=== PATIENT | female | born 1995 | race Caucasian/White ===

== ENCOUNTER 2022-06-25 02:45 | Inpatient (IN) | payer OTHER ==
[2022-06-25 04:31] VITALS: BMI 25.7
[2022-06-25] MEDS ORDERED: ELECTROLYTE-148 SOLN 1,000 ML IV ONE (04:40)
[2022-06-25] MEDS ORDERED: BUTORPHANOL TARTRATE 2 MG/ML VIAL ONE (05:25)
[2022-06-25] MEDS ORDERED: PROMETHAZINE HCL 25 MG/1 ML VIAL ONE (05:26)
[2022-06-25] MEDS ORDERED: BUTORPHANOL TARTRATE 2 MG/ML VIAL IVPB ONE (05:30)
[2022-06-25] MEDS ORDERED: PROMETHAZINE HCL 25 MG/1 ML VIAL IVPB ONE ×2 (05:30)
[2022-06-25 05:33] LABS: POTASSIUM 3.8 mmol/L (3.5-5.1)
[2022-06-25 05:34] LABS: CALCIUM 9.1 mg/dL (8.5-10.1)
[2022-06-25 05:35] LABS: BLOOD UREA NITROGEN 6.9 mg/dL (7-18)
[2022-06-25 05:38] LABS: CREATININE 0.5 mg/dL (0.55-1.3)
[2022-06-25 05:41] LABS: BASO % 0.3 % (0-2.0); EOS % 0.3 % (0-4.5); HEMATOCRIT 34.3 % (32.4-45.2); LYMPH % 17.1 % (8-40); MCH 30.4 pg (25.7-33.7); MCHC 34.9 g/dl (32.0-36.0); MEAN CELL VOLUME 87.2 fl (80-96); MEAN PLT VOLUME 10.7 fl (7.5-11.1); MONO % 5.8 % (3.8-10.2); NEUT % 76.5 % (42.8-82.8); PLATELET COUNT 245 10^3/uL (134-434); RBC 3.94 M/mm3 (3.60-5.2); RDW 15.1 % (11.6-15.6); WHITE BLOOD COUNT 12.9 K/mm3 (4.0-10.0)
[2022-06-25 05:56] LABS: INR 0.98 (0.83-1.09); PROTHROMBIN TIME (PATIENT) 11.4 SEC (9.7-13.0)
[2022-06-25 05:59] LABS: ACTIVATED PTT 29.3 SECONDS (25.2-36.5)
[2022-06-25 06:01] LABS: SYPHILIS W/ RPR CONF NON-REACTIVE (NONREACTIVE)
[2022-06-25 06:30] LABS: HIV INTERPRETATION NEGATIVE (NEGATIVE)
[2022-06-25] MEDS ORDERED: CITRIC ACID/SODIUM CITRATE 30 ML UNIT-DOSE CUP PO ONE (09:22)
[2022-06-25] MEDS ORDERED: DEXTROSE 5%-LACTATED RINGERS 1,000 ML IV SCH (09:30)
[2022-06-25] MEDS ORDERED: ONDANSETRON 4 MG/2 ML VIAL IVPUSH PRN (09:42)
[2022-06-25] MEDS ORDERED: FENTANYL CITRATE/PF 50 MCG/ML VIAL ONE (09:45)
[2022-06-25] MEDS ORDERED: morphine SULFATE/PF 1 MG/2 ML (2cc Syringe - QUVA) ONE (09:45)
[2022-06-25] MEDS ORDERED: ceFAZolin SODIUM 1 GM VIAL ONE (10:03)
[2022-06-25] MEDS ORDERED: ONDANSETRON 4 MG/2 ML VIAL ONE (10:14)
[2022-06-25] MEDS ORDERED: OXYTOCIN 10 UNITS/ML VIAL ONE ×2 (10:14→10:54)
[2022-06-25] MEDS ORDERED: METHYLERGONOVINE MALEATE 0.2 MG/1 ML AMP IM PRN (11:00)
[2022-06-25] MEDS ORDERED: IBUPROFEN 800 MG/8 ML IJ IVPB PRN (11:00)
[2022-06-25] MEDS ORDERED: ACETAMINOPHEN 1000 MG/100 ML BAG IVPB PRN (11:03)
[2022-06-25] MEDS: OXYTOCIN 20 UNITS in 0.9% NS 20 UNIT/1,000 ML INFUS.BAG IV SCH ×2 (11:05→19:13)
[2022-06-25] MEDS ORDERED: IBUPROFEN 800 MG/8 ML IJ IVPB ONE (13:34)
[2022-06-25] MEDS: SENNOSIDES/DOCUSATE COMBO (SENNA PLUS) TABLET (UD) PO PRN (22:08)
[2022-06-25] MEDS: SIMETHICONE 80 MG TAB.CHEW (FP) PO PRN (22:08)
[2022-06-25] MEDS: FERROUS SO4 325 MG TABLET (FP) PO SCH (22:08)
[2022-06-25] MEDS ORDERED: oxyCODONE HCL 5 MG TABLET PO PRN (23:00)
[2022-06-26] MEDS: IBUPROFEN 600 MG TABLET (FP) PO PRN ×2 (00:54→13:42)
[2022-06-26] MEDS: oxyCODONE HCL 5 MG TABLET PO PRN ×3 (05:48→18:08)
[2022-06-26] MEDS: SIMETHICONE 80 MG TAB.CHEW (FP) PO PRN ×3 (05:48→18:09)
[2022-06-26 06:56] LABS: BASO % 0.3 % (0-2.0); EOS % 0.6 % (0-4.5); HEMATOCRIT 28.6 % (32.4-45.2); HEMOGLOBIN 10.1 GM/dL (10.7-15.3); LYMPH % 24.6 % (8-40); MCH 30.8 pg (25.7-33.7); MCHC 35.3 g/dl (32.0-36.0); MEAN CELL VOLUME 87.3 fl (80-96); MEAN PLT VOLUME 9.3 fl (7.5-11.1); MONO % 7.7 % (3.8-10.2); NEUT % 66.8 % (42.8-82.8); PLATELET COUNT 196 10^3/uL (134-434); RBC 3.28 M/mm3 (3.60-5.2); RDW 15.3 % (11.6-15.6); WHITE BLOOD COUNT 10.9 K/mm3 (4.0-10.0)
[2022-06-26] MEDS: FERROUS SO4 325 MG TABLET (FP) PO SCH ×2 (10:01→21:46)
[2022-06-26] MEDS: PRENATAL VITAMINS W/ FOLIC ACID TABLET (FP) PO SCH (10:01)
[2022-06-26] MEDS ORDERED: BISACODYL 10 MG SUPP.RECT RC PRN (11:00)
[2022-06-26] MEDS: ACETAMINOPHEN 325 MG TABLET (FP) PO PRN (19:52)
[2022-06-27] MEDS: ACETAMINOPHEN 325 MG TABLET (FP) PO PRN ×4 (01:45→17:32)
[2022-06-27] MEDS: SIMETHICONE 80 MG TAB.CHEW (FP) PO PRN ×3 (01:45→17:29)
[2022-06-27] MEDS: oxyCODONE HCL 5 MG TABLET PO PRN ×2 (08:23→13:03)
[2022-06-27] MEDS: FERROUS SO4 325 MG TABLET (FP) PO SCH ×2 (09:34→22:47)
[2022-06-27] MEDS: PRENATAL VITAMINS W/ FOLIC ACID TABLET (FP) PO SCH (09:34)
[2022-06-27] MEDS: SENNOSIDES/DOCUSATE COMBO (SENNA PLUS) TABLET (UD) PO PRN (17:33)
[2022-06-27] MEDS: IBUPROFEN 600 MG TABLET (FP) PO PRN (19:41)
[2022-06-27 22:52] VITALS: RESP 18
[2022-06-28] MEDS: SIMETHICONE 80 MG TAB.CHEW (FP) PO PRN ×2 (01:01→08:38)
[2022-06-28] MEDS: IBUPROFEN 600 MG TABLET (FP) PO PRN ×2 (01:02→08:38)
[2022-06-28] MEDS: PRENATAL VITAMINS W/ FOLIC ACID TABLET (FP) PO SCH (09:26)
[2022-06-28] MEDS: FERROUS SO4 325 MG TABLET (FP) PO SCH (09:26)
[2022-06-28 09:34] VITALS: BP 134/89; PULSE 85; TEMP 98.1
== END 2022-06-28 11:32 | disposition home or self-care (01) | DRG 540 ==
LOC: JDEL 02:45 → JLDR 03:30 → J3W 13:50
PROVIDERS: ADMIT Obstetrics & Gynecology; ATTEND Obstetrics & Gynecology
PROC: 10D00Z1 Extraction of Products of Conception, Low, Open Approach (ICD-10-PCS; principal; 2022-06-25)
DX: O36.8330 Maternal care for abnormalities of the fetal heart rate or rhythm, third trimester, not applicable or unspecified (principal); O32.8XX0 Maternal care for other malpresentation of fetus, not applicable or unspecified; O69.2XX0 Labor and delivery complicated by other cord entanglement, with compression, not applicable or unspecified; Z3A.40 40 weeks gestation of pregnancy; O26.893 Other specified pregnancy related conditions, third trimester; Z37.0 Single live birth; R51.9 Headache, unspecified
CPT/HCPCS: 36415; 80048; 85025; 85610; 85730; 86780; 86850; 86900; 86901; 87389; 88307-TC; C9803-CS; U0003; U0005